=== PATIENT | female | born 1960 | race African-American/Black ===

== ENCOUNTER 2022-12-25 22:17 | Emergency (ER) | payer OTHER ==
[~2022-12-25] VITALS: Ht 165.1 cm; Wt 61.4 kg
[2022-12-25] MEDS ORDERED: HYDROCODONE/ACETAMINOPHEN 5-325 MG TABLET PO ONE (22:30)
[2022-12-25] MEDS ORDERED: KETOROLAC TROMETHAMINE 60 MG/2 ML VIAL IM ONE (22:30)
[2022-12-25] MEDS ORDERED: HYDR-4723 PO (23:31)
[2022-12-25] MEDS ORDERED: IBUP-1554 PO (23:31)
[2022-12-25 23:45] VITALS: BP 142/82
== END 2022-12-25 23:49 | disposition home or self-care (01) ==
LOC: EMS 22:23
DX: S92.352A Displaced fracture of fifth metatarsal bone, left foot, initial encounter for closed fracture (principal); F17.210 Nicotine dependence, cigarettes, uncomplicated; Z98.890 Other specified postprocedural states; Z88.0 Allergy status to penicillin; X58.XXXA Exposure to other specified factors, initial encounter; Y93.89 Activity, other specified; Y92.89 Other specified places as the place of occurrence of the external cause; Y99.8 Other external cause status
CPT/HCPCS: 99283; 73630; 96372; J1885